=== PATIENT | male | born 1970 | race Caucasian/White ===

== ENCOUNTER 2025-11-16 19:13 | Emergency (ER) | payer MEDICARE, OTHER, SELFPAY ==
[2025-11-16 19:17] VITALS: BP 132/76; PULSE 79; RESP 20; TEMP 37.3; O2SAT 97; BMI 36.9
[2025-11-16] MEDS: PROPRANOLOL 10 MG TABLET 20 MG PO (21:45)
[2025-11-16 23:20] VITALS: BP 118/69; PULSE 61; RESP 15; O2SAT 97
--- NOTE | 2025-11-17 09:08 | ED.RECABL ---
HPI - Recheck/Abnormal Lab/Rx General Chief Complaint: Recheck/Abnormal Lab/Rx Stated Complaint: Medication Refill, Withdrawals Time Seen by Provider: 11/16/25 19:54 Source: patient Mode of arrival: Ambulatory History of Present Illness HPI narrative: Patient is a 55 randall old man oh propranolol and geodon for psychiatric disorder presents to the ED for precription. He is from [place] and forgot his medications when he came up here to visit his family for the holidays. He reports restless legs and inability to sleep. No SI/HI. Related Data Home Medications ?Medication ?Instructions ?Recorded ?Confirmed propranolol 20 mg tablet 20 mg PO BID 11/16/25 11/16/25 ziprasidone HCl 40 mg capsule 40 mg PO BID 11/16/25 11/16/25 Previous Rx's ?Medication ?Instructions ?Recorded propranolol 20 mg tablet 20 mg PO BID #10 tabs 11/16/25 ziprasidone HCl 40 mg capsule 40 mg PO BID #8 caps 11/16/25 (Geodon) ziprasidone HCl 40 mg capsule 40 mg PO BID #8 caps 11/16/25 (Geodon) Allergies Allergy/AdvReac Type Severity Reaction Status Date / Time No Known Drug Allergies Allergy Verified 11/16/25 19:18 Review of Systems Review of Systems Narrative: See HPI. Patient History Social History Smoking Status: Never smoker Smoking Status: Never smoker Exam Narrative Exam Narrative: Vitals: Afebrile, vitals within normal ranges Gen: Well developed, well nourished, appears anxious Cards: Regular. Pulm: Normal work of breathing. Abd: Nondistended. Neuro: A&Ox4, cranial nerved grossly intact, moving all 4 extremities spontaneously. Psych: Patient is answering questions appropriately, he is sitting in hospital chair dressed appropriate, appear anxious, bouncing legs up and down, does not appear to be responding to internal stimuli, no pressured speech. Initial Vital Signs Initial Vital Signs: Vital Signs Temperature 99.1 F 11/16/25 19:17 Pulse Rate 79 11/16/25 19:17 Respiratory Rate 20 11/16/25 19:17 Blood Pressure 132/76 11/16/25 19:17 Pulse Oximetry 97 11/16/25 19:17 Oxygen Delivery Method Room Air 11/16/25 19:17 Course Orders Ordered: Discontinued Medications Olanzapine (Olanzapine 2.5 Mg Tablet) 5 mg PO NOW ONE Stop: 11/16/25 21:18 Last Admin: 11/16/25 21:45 Dose: 5 mg Documented By: DEXTER Olanzapine (Olanzapine 2.5 Mg Tablet) 5 mg PO BID [facility] Last Admin: 11/16/25 23:22 Dose: 5 mg Documented By: MELINDA Propranolol HCl (Propranolol 10 Mg Tablet) 20 mg PO NOW ONE Stop: 11/16/25 21:23 Last Admin: 11/16/25 21:45 Dose: 20 mg Documented By: DEXTER MDM - Recheck/Abnormal Lab/Rx MDM Narrative Medical decision making narrative: Patient is a 55 year old man on ziprasidone and prn propranolol who presents today with restlessness and insomnia after acute discontinuation of his medcations. Differential diagnosis: Abrupt discontinuation of therapy, reemergence of symptoms Labs: None Imaging: None EKG: Not performed Consults: None ED course: In the ED vitals were normal. Physical exam was consistent with reemergence of symptoms after abrupt discontinuation of therapy. Patient was given 5mg zyprexa and 20mg propranolol. On re-evaluation patient reports his symptoms persisted and therefore was given additional 5mg zyprexa. I provided patient choice of continued observation in the ED; however, he opted for discharge. He was given a prescription for propranolol and Geodon and discharged with family. Discharge Plan Departure Patient Disposition: Home Clinical Impression: Encounter for medication refill Activity Restrictions/Additional Instructions: You were seen in the emergency department for medication refill. Unfortunately we do not carry Geodon in her formula and you were given 10 mg of Zyprexa as well as 20 mg of propranolol You were discharged with a paper prescription for these medications. Please return to the ER if you develop any new or worsening symptoms. Prescriptions: New propranolol 20 mg tablet 20 mg PO BID Qty: 10 0RF ziprasidone HCl [Geodon] 40 mg capsule 40 mg PO BID Qty: 8 0RF Rx Instructions: give with food (meal/snack) ziprasidone HCl [Geodon] 40 mg capsule 40 mg PO BID Qty: 8 0RF Rx Instructions: give with food (meal/snack) No Action ziprasidone HCl 40 mg capsule 40 mg PO BID propranolol 20 mg tablet 20 mg PO BID Stand Alone Forms: Patient Portal/API
== END 2025-11-16 23:27 | disposition home or self-care (01) ==
PROVIDERS: Emergency Provider Student in an Organized Health Care Education/Training Program
DX: F99 Mental disorder, not otherwise specified (principal); G25.81 Restless legs syndrome; Z76.0 Encounter for issue of repeat prescription
CPT/HCPCS: 99283